=== PATIENT | female | born 1970 | race Caucasian/White ===

== ENCOUNTER 2018-11-05 14:53 | Inpatient (IN) ==
[2018-11-05] MEDS ORDERED: HEPARIN IV ONE (15:29)
[2018-11-05] MEDS ORDERED: ZOFRAN IV ONE (15:30)
[2018-11-05] MEDS ORDERED: MORPHINE IV ONE (15:30)
[2018-11-05 15:55] LABS: BASO# 0.06 X1000 (0.0-0.2); BASO% 0.4 % (0.0-0.8); EOS# 0.12 X1000 (0.0-0.7); EOS% 0.8 % (0.0-10.0); HEMATOCRIT 46.4 % (37.0-47.0); HEMOGLOBIN 15.9 g/dL (12.0-16.0); IMM GRAN# 0.16 X1000 (0.0-0.04); IMM GRAN% 1.1 % (0.0-0.5); LYMPH# 2.58 X1000 (1.2-3.4); LYMPH% 17.5 % (20.5-51.1); MCH 28.9 PG (27-31); MCHC 34.3 g/dL (33-37); MCV 84.4 FL (81-99); MONO% 6.1 % (1.7-9.3); MPV 11.4 FL (7.4-10.4); NEUT# 10.95 X1000 (1.4-6.5); NEUT% 74.1 % (42.2-75.2); PLT 247 X1000 (130-400); RDW 13.4 % (11.5-14.5); WBC 14.77 X1000 (4.8-10.8)
[2018-11-05 16:12] LABS: INR 0.91; PROTIME 13.1 Seconds (11.0-16.0); PTT 25.3 Seconds (22.3-41.8)
[2018-11-05] MEDS ORDERED: HEPARIN 25,000 UNITS/D5W 25,000 UNIT/250 ML IV.SOLN IV SCH (16:15)
[2018-11-05 16:16] LABS: ALB/GLOB RATIO 1.4; CALCIUM 8.7 mg/dL (8.8-10.2); CREATININE 1.5 mg/dL (0.5-0.9); POTASSIUM 4.4 mmol/L (3.5-5.1); TOTAL BILIRUBIN 0.34 mg/dL (0.20-1.00); TOTAL PROTEIN 6.8 g/dL (6.3-8.3)
--- NOTE | 2018-11-05 16:58 | Diag Imaging Result Doc PS360 ---
EXAM: CT ANGIOGRAM AORTA W/RUNOFF 11/05/2018 HISTORY: LLE decreased pulse TECHNIQUE: This exam was performed using automated exposure control, adjustment of mA or kV according to patient size, and/or use of iterative reconstruction technique. COMMENT: 3-D MIPS were performed. There is emphysematous change in the lung bases. There are granulomata in the spleen. There are no gallstones. The liver, adrenal glands and pancreas are unremarkable. The kidneys are without evidence of hydronephrosis or mass. There is an apparent cyst laterally in the left kidney. There appears to be some narrowing of the renal arteries bilaterally. The celiac and superior mesenteric arteries are patent. The inferior mesenteric artery is patent. There is severe calcific and noncalcific atheromatous disease in the distal abdominal aorta. There is stenosis of both common iliac arteries proximally particularly the left with near occlusion. There is at least 50% diameter stenosis of both common iliac arteries distally. The external iliac arteries are patent bilaterally. There are calcified plaques in both common femoral arteries. The superficial femoral arteries are somewhat narrowed proximally particularly the left. The possibility of a superficial femoral occlusion in the mid thigh on the left cannot be excluded. The contrast density in the distal portions of both legs is somewhat suboptimal. Both popliteal arteries appear to be patent. There is apparent runoff bilaterally in the posterior tibial arteries at least to the distal calf if not to the ankle. The anterior tibial arteries appear to be patent as well. IMPRESSION: Severe stenosis of the common iliac arteries at their origin particularly on the left side. Proximal stenosis of the left superficial femoral artery. Electronically signed by Kike Morales 11/05/2018 4:55 PM
[2018-11-05] MEDS ORDERED: QUELICIN (DOSE) ONE (17:25)
[2018-11-05] MEDS ORDERED: DIPRIVAN 1% ONE (17:25)
[2018-11-05] MEDS ORDERED: FENTANYL ONE ×2 (17:25→20:16)
[2018-11-05] MEDS ORDERED: VERSED ONE (17:25)
[2018-11-05] MEDS ORDERED: XYLOCAINE-MPF 2% ONE (17:25)
[2018-11-05] MEDS ORDERED: SODIUM CHLORIDE 0.9% 10 ML ONE (17:26)
[2018-11-05] MEDS ORDERED: NORCURON ONE (17:26)
[2018-11-05] MEDS ORDERED: MARCAINE 0.25% PF/EPI 1:200,000 ONE (17:38)
[2018-11-05] MEDS ORDERED: KEFZOL ONE (17:38)
--- NOTE | 2018-11-05 17:38 | Diag Imaging Result Doc PS360 ---
EXAM: CHEST-1 VIEW 11/05/2018 HISTORY: Sepsis protocol TECHNIQUE: AP portable at 1729 COMMENT: There is no evidence of acute cardiac or pulmonary disease. There are no previous studies. IMPRESSION: No evidence of acute disease. Electronically signed by Kike Morales 11/05/2018 5:36 PM
[2018-11-05] MEDS ORDERED: NS 2,000 ML ONE (17:39)
[2018-11-05] MEDS ORDERED: HEPARIN ONE ×3 (17:39→19:50)
[2018-11-05] MEDS ORDERED: KEFZOL 1 GM/D5W 2 GM/100 ML IVPB ONE (17:42)
--- NOTE | 2018-11-05 17:43 | PROVIDER DOCUMENTATION ---
This chart was entered by Aurelia Dove Scribe, acting as scribe for Anjel Gupta MD. HPI-Musculoskeletal Pain/Inj - GENERAL Chief Complaint: Extremity Pain Stated Complaint: CRAMPING Time Seen by Provider: 11/05/18 15:12 Source: patient, family - HX OF PRESENT ILLNESS-MUSKULOSKELTAL Nature of Presenting Problem: 48 yowf presents to the ed with cc left foot pain. pt sts felt well yesterday gave plasma and after giving plasma pt had a syncopal episode with n/v. pt woke this am with severe pain in left foot with digits and foot blue. pt on exam is tearful and sts pain 10/10 Quality of Pain: reports: throbbing Severity in ED: severe Onset/Duration: this morning Timing: still present, constant Modifying Factors: improves with: nothing. worse with: movement, palpation Any recent injury?: No Locality of Occurance: Home Similar Symptoms Previously?: No Recently seen or treated by another doctor?: No Review of Systems - Adult - REVIEW OF SYSTEMS - ADULT Constitutional: denies: chills, fever Eyes: reports: no symptoms reported Ears, Nose, Mouth & Throat: reports: no symptoms reported Cardiovascular: denies: chest pain, palpitations, syncope Respiratory: denies: cough, shortness of breath, wheezing Gastrointestinal: reports: no symptoms reported Genitourinary: reports: no symptoms reported Musculoskeletal: reports: see HPI, frequent leg cramps, other (left foot pain). denies: back pain, muscle aches, neck pain Integumentary: reports: no symptoms reported Neurological: denies: dizziness/vertigo, headache/migraines Psychiatric: reports: no symptoms reported Endocrine: reports: no symptoms reported Hematologic/Lymphatic: reports: no symptoms reported Allergic/Immunologic: reports: no symptoms reported All Other Systems: Reviewed and Negative Past History - Adult - PAST MEDICAL HISTORY-ADULT Review of Records: reports: Nursing Assessment Review, Medications Reviewed Major Childhood Illnesses: reports: denies history Cardiovascular: reports: denies history Respiratory: reports: denies history Gastrointestinal: reports: GERD Obstetrical/Gynecological: reports: ectopic Genitourinary: reports: denies history Musculoskeletal: reports: chronic pain, neck/back injury Hand Dominance: Right Handed Neurological: reports: denies history Psychiatric: reports: denies history Endocrine/Immune: reports: denies history Other Conditions: reports: denies history - PRIOR SURGERIES/PROCEDURES Surgical/Procedure History: reports: BTL - IMMUNIZATION STATUS Childhood Immunizations: See Nurse Assessment Flu Vaccine: See Nurse Assessment - FAMILY HISTORY Family History: reviewed, not pertinent - SOCIAL HISTORY Smoking: cigarettes, less than 1 pack/day Provider spent 3-5 mins advising pt. on dangers of tobacco.: Discussed manners to quit use, and f/u contacts for add'l counseling. Substance Use: marijuana Living Situation: family Physical Exam-Injury Related - Physical Exam-Injury Related Initial Vital Signs Reviewed: Yes General Appearance: alert, moderate distress, obese, other (tearful) Eyes: PERRL/EOMI, pink conjunctivae Head, Ears, Nose, Mouth & Throat: moist mucous membranes, normal ENT inspection Neck: non-tender, full range of motion, supple, normal inspection Respiratory: chest non-tender, lungs clear, normal breath sounds, no pleuratic chest pain, no respiratory distress, no accessory muscle use Cardiovascular: normal peripheral pulses, tachycardia (131) Chest/Breast: deferred Abdominal Exam: normal bowel sounds, non tender, soft Female Genitalia/Pelvic Exam: deferred Rectal Exam: deferred Hemoccult Exam: deferred Lymphatic: no adenopathy Back Exam: normal inspection, no CVA tenderness, no vertebral tenderness Extremity: pelvis stable, pulse deficit (left foot), slow capillary refill (left foot), tenderness (left foot), other (digits of left foot and partial area of foot is blue in color). negative: normal inspection Integumentary: warm/dry, cyanosis (left foot), tenderness (left foot) Neurologic: grossly normal, no motor/sensory deficits Psych/Mental Status: normal mood/affect, normal thought content, normal thought process, oriented x 3, tearful - Glascow Coma Score Best Eye Response (Joe): (4) open spontaneously Best Verbal Response (Joe): (5) oriented Best Motor Response (Joe): (6) obeys commands Joe Total: 15 Progress - PLAN OF CARE/RESULTS Progress/Plan/Lab Results: Vital Signs - 8 hr 11/05/18 14:56 Temperature 97.4 F L Pulse Rate 131 H Respiratory Rate 22 Blood Pressure 182/107 O2 Sat by Pulse Oximetry 99 Laboratory Results - last 24 hr 11/05/18 11/05/18 11/05/18 15:41 15:41 15:41 WBC 14.77 H RBC 5.50 H Hgb 15.9 Hct 46.4 MCV 84.4 MCH 28.9 MCHC 34.3 RDW Std Deviation 13.4 Plt Count 247 MPV 11.4 H Immature Gran % (Auto) 1.1 H Neut % (Auto) 74.1 Lymph % (Auto) 17.5 L [place] % (Auto) 6.1 Eos % (Auto) 0.8 Baso % (Auto) 0.4 Immature Gran # (Auto) 0.16 H Neut # (Auto) 10.95 H Lymph # (Auto) 2.58 [place] # (Auto) 0.90 H Eos # (Auto) 0.12 Baso # (Auto) 0.06 PT 13.1 INR 0.91 PTT (Actin FS) 25.3 Sodium 139 Potassium 4.4 Chloride 100 Carbon Dioxide 24 L Anion Gap 15 BUN 22 Creatinine 1.5 H Estimated GFR/1.73 m2 37 BUN/Creatinine Ratio 15 Glucose 142 H Calculated Osmolality 283 Calcium 8.7 L Magnesium Total Bilirubin 0.34 AST 18 ALT 11 Alkaline Phosphatase 81 Creatine Kinase Troponin T Total Protein 6.8 Albumin 4.0 Globulin 2.8 Albumin/Globulin Ratio 1.4 11/05/18 11/05/18 11/05/18 15:41 15:41 15:41 WBC RBC Hgb Hct MCV MCH MCHC RDW Std Deviation Plt Count MPV Immature Gran % (Auto) Neut % (Auto) Lymph % (Auto) [place] % (Auto) Eos % (Auto) Baso % (Auto) Immature Gran # (Auto) Neut # (Auto) Lymph # (Auto) [place] # (Auto) Eos # (Auto) Baso # (Auto) PT INR PTT (Actin FS) Sodium Potassium Chloride Carbon Dioxide Anion Gap BUN Creatinine Estimated GFR/1.73 m2 BUN/Creatinine Ratio Glucose Calculated Osmolality Calcium Magnesium 1.6 Total Bilirubin AST ALT Alkaline Phosphatase Creatine Kinase 80 Troponin T < 0.010 Total Protein Albumin Globulin Albumin/Globulin Ratio Orders Category Date Time Status Cardiac Monitoring DIRECTED Care 11/05/18 16:22 Active Notify MD of + Sepsis Screen NOW Care 11/05/18 16:22 Active Notify Physician As Ordered Care 11/05/18 16:22 Active CHEST-1 VIEW [RAD] Stat Exams 11/05/18 16:[address] ANGIOGRAM AORTA W/RUNOFF [CT] Stat Exams 11/05/18 15:28 Completed ANTI-THROMBIN III ACTIVITY [HH] Stat Lab 11/05/18 16:23 Ordered BLOOD CULTURE [BLDCUL] Stat Lab 11/05/18 15:21 Received CBC WITH ELECTRONIC DIFF [HEME] Stat Lab 11/05/18 15:41 Completed CK PROFILE [SP CHEM] Stat Lab 11/05/18 15:41 Completed COMPREHENSIVE METABOLIC PANEL [CHEM] Stat Lab 11/05/18 15:41 Completed FACTOR V [id number] LEIDEN [MACON] Stat Lab 11/05/18 16:23 Ordered HOMOCYSTEINE TOTAL PLASMA [HH] Stat Lab 11/05/18 16:23 Ordered LACTATE, PLASMA [CHEM] Lab 11/05/18 17:27 Received LACTATE, PLASMA [CHEM] Lab 11/05/18 19:30 Uncollected LACTATE, PLASMA [CHEM] Lab 11/05/18 22:30 Uncollected LUPUS INHIBITOR [HH] Stat Lab 11/05/18 16:23 Ordered MAGNESIUM [CHEM] Stat Lab 11/05/18 15:41 Completed PHOSPHOLIPID AB [MACON] Stat Lab 11/05/18 16:23 Ordered PROTEIN C ACTIVITY [HH] Stat Lab 11/05/18 16:23 Ordered PROTEIN S ACTIVITY [HH] Stat Lab 11/05/18 16:23 Ordered PROTIME WITH INR [COAG] Stat Lab 11/05/18 15:41 Completed PT [id number] GENE MUTATION [MACON] Stat Lab 11/05/18 16:23 Ordered PTT [COAG] Stat Lab 11/05/18 15:41 Completed TROPONIN T Stat Lab 11/05/18 15:41 Completed URINALYSIS W/POSS RFLX CULT [URINALYSIS] Stat Lab 11/05/18 16:22 Uncollected 0.9% Sodium Chloride Inj [Ns] 2,000 ml Med 11/05/18 17:39 Discontinued .ROUTE As directed Bupvcaine Pf0.25%/Epi 1:[id number] [Marcaine 0.25% Pf/Epi 1 Med 11/05/18 17:38 Discontinued :200,000] 30 ml .ROUTE .STK-MED ONE CefAZOLIN [Kefzol] Med 11/05/18 17:38 Discontinued 1 gm .ROUTE .STK-MED ONE Fentanyl Med 11/05/18 17:25 Discontinued 100 microgm .ROUTE .STK-MED ONE Heparin Med 11/05/18 17:39 Discontinued 10,000 unit .ROUTE .STK-MED ONE Heparin Med 11/05/18 17:39 Discontinued 5,000 unit .ROUTE .STK-MED ONE Heparin Med 11/05/18 15:29 Discontinued 5,100 unit IV NOW ONE Heparin 25,000 Units/D5w Med 11/05/18 16:15 Active 25,000 unit in 250 ml IV 12 unit/kg/hr Lidocaine 2% Pf [Xylocaine-Mpf 2%] Med 11/05/18 17:25 Discontinued 5 ml .ROUTE .STK-MED ONE Midazolam [Versed] Med 11/05/18 17:25 Discontinued 2 mg .ROUTE .STK-MED ONE Morphine Med 11/05/18 15:30 Discontinued 4 mg IV NOW ONE Ondansetron [Zofran] Med 11/05/18 15:30 Discontinued 4 mg IV NOW ONE Propofol [Diprivan 1%] Med 11/05/18 17:25 Discontinued 200 mg .ROUTE .STK-MED ONE Sodium Chloride 0.9% 10 ml Med 11/05/18 17:26 Discontinued .ROUTE As directed Succinylcholine (Dose) [Quelicin (Dose)] Med 11/05/18 17:25 Discontinued 20 mg .ROUTE .STK-MED ONE Vecuronium [Norcuron] Med 11/05/18 17:26 Discontinued 10 mg .ROUTE .STK-MED ONE Oxygen Device Stat Oth 11/05/18 16:22 Active Arterial Bilateral Legs Stat Ther 11/05/18 15:26 Completed Result Diagrams: 11/05/18 15:41 11/05/18 15:41 - CT/MRI 1 CT Study: Angiogram Impression: See EMR Report (EXAM: CT ANGIOGRAM AORTA W/RUNOFF 11/05/2018 HISTORY: LLE decreased pulse TECHNIQUE: This exam was performed using a utomated exposure control, adjustment of mA or kV according to patient size, and/or use of iterative reconstruction technique. COMMENT: 3-D MIPS were performed. There is emphysematous change in the lung bases. There are granulomata in the spleen. There are no gallstones. The liver, adrenal glands and pancreas are unremarkable. The kidneys are without evidence of hydronephrosis or mass. There is an apparent cyst laterally in the left kidney. There appears to be some narrowing of the renal arteries bilaterally. The celiac and superior mesenteric arteries are patent. The inferior mesenteric artery is patent. There is severe calcific and noncalcific atheromatous disease in the distal abdominal aorta. There is stenosis of both common iliac arteries proximally particularly the left with near occlusion. There is at least 50% diameter stenosis of both common iliac arteries distally. The external iliac arteries are patent bilaterally. There are calcified plaques in both common femoral arteries. The superficial femoral arteries are somewhat narrowed proximally particularly the left. The possibility of a superficial femoral occlusion in the mid thigh on the left cannot be excluded. The contrast density in the distal portions of both legs is somewhat suboptimal. Both popliteal arteries appear to be patent. There is apparent runoff bilaterally in the posterior tibial arteries at least to the distal calf if not to the ankle. The anterior tibial arteries appear to be patent as well. IMPRESSION: Severe stenosis of the common iliac arteries at their origin particularly on the left side. Proximal stenosis of the left superficial femoral artery. Electronically signed by Kike Morales 11/05/2018 4:55 PM 11/05/18 1655 Interpreting Physician: Kike Morales MD Dictated Date/Time: 11/05/18 1642 cc: Anjel Gupta MD; None,PCP) - CONSULTS/PCP/HOSPITALIST Notification #1 *Consult/PCP/Hospitalist*: venous sx dr he Time Discussed: 15:48 (dr he will call US ) Reason/Comments: phone consult Departure - Departure Date of Disposition Decision: 11/05/18 Time of Disposition Decision: 17:00 DIAGNOSIS: Vascular occlusion Disposition: ADMITTED INPATIENT 09 Certified Medical Emergency: Emergent Condition: Serious Referrals and Follow-Ups: None,PCP [Primary Care Provider] - Discharge Education: Steps to Quit Smoking, [id number] - Critical Care Note This patient required my direct & personal management of CC.: Yes Total Time (mins): 35 Critical Care Statement: This patient required my direct personal management to treat or rule out processes, the absence of which, could potentiallly result in sudden, clinically significant life or limb threatening deterioration. Attestation - Physician/ NICOLAS Attestation Patient care was provided by Advanced Practice Provider:: No The physician spent face to face time with patient:: Yes Advanced Practice Provider documentation review:: Supervising physician onsite and consulted in the evaluation and care of this patient. The physician did have a face to face encounter with the patient. This chart was documented by the indicated scribe, (Aurelia Dove Scribe) and accurately reflects the services I performed and decisions made by me, Anjel Gupta MD, as attested by the provider's signature.
[2018-11-05] MEDS ORDERED: PAPAVERINE ONE ×3 (19:10→19:55)
[2018-11-05] MEDS ORDERED: STERILE WATER INJ. INJ ONE (19:30)
[2018-11-05] MEDS ORDERED: CATHFLO IV ONE (19:30)
[2018-11-05] MEDS ORDERED: ROBINUL ONE (19:31)
[2018-11-05] MEDS ORDERED: NS 1,000 ML ONE (19:50)
[2018-11-05] MEDS ORDERED: HEPARIN (DOSE) ONE (20:27)
[2018-11-05 20:58] LABS: URINE SOURCE CATH
[2018-11-05 21:02] LABS: BILIRUBIN URINE NEGATIVE (NEGATIVE); BLOOD URINE NEGATIVE (NEGATIVE); COLOR YELLOW; GLUCOSE URINE NEGATIVE (NEGATIVE); KETONE URINE NEGATIVE (NEGATIVE); LEUKOCYTES URINE NEGATIVE (NEGATIVE); NITRITE URINE NEGATIVE (NEGATIVE); PROTEIN URINE 30 mg/dL (NEGATIVE); TURBIDITY URINE CLEAR (CLEAR); UROBILINOGEN URINE NORMAL (NORMAL)
[2018-11-05 21:03] LABS: UR EPITHELIAL CELLS <10 /HPF (<10); URINE BACTERIA NEGATIVE /HPF; URINE RBC <10 /HPF (<10); URINE WBC <10 /HPF (<10)
[2018-11-05] MEDS: DILAUDID ONE ×5 (21:10→21:27)
[2018-11-05] MEDS ORDERED: LABETALOL IV ONE (21:20)
[2018-11-05] MEDS: PHENERGAN ONE ×2 (21:42→21:50)
[2018-11-05] MEDS ORDERED: APRESOLINE ONE (21:57)
[2018-11-05 21:58] LABS: SP GRAVITY URINE <= 1.005
[2018-11-05] MEDS ORDERED: LR 1,000 ML ONE (22:14)
[2018-11-05] MEDS ORDERED: LABETALOL IV PRN (22:41)
[2018-11-05] MEDS ORDERED: APRESOLINE IV PRN (22:41)
[2018-11-05] MEDS ORDERED: MORPHINE IV PRN ×2 (22:42→23:07)
[2018-11-06] MEDS: ZOFRAN IV PRN (00:13)
[2018-11-06] MEDS: DILAUDID IV PRN ×5 (00:14→23:16)
--- NOTE | 2018-11-06 04:00 | HISTORY AND PHYSICAL ---
ADDENDUM: Patient seen and examined by myself on the . Full note dictated and discussed with nurse practitioner. Patient presented to the hospital with decreased circulation of her left foot. She has been taken to surgery by Dr. Bermudez. We will continue to evaluate and treat medically. Currently, she is sedated. The entire history has to be obtained per the old records. She is currently in no respiratory distress. Please see full note. cc: Kevon Jarrett MD
--- NOTE | 2018-11-06 04:05 | HISTORY AND PHYSICAL ---
PRIMARY CARE PHYSICIAN: None. CHIEF COMPLAINT: Left foot pain after giving plasma yesterday and a syncopal episode with nausea and vomiting yesterday. HISTORY OF PRESENT ILLNESS: Ms. Malagon is a 48-year-old female who is lying in the hospital bed status post surgery. The patient is sedated and sleeping. According to the ER records, the patient states that she had plasma yesterday and had a syncopal episode with nausea and vomiting. The patient woke up this a.m. with severe pain to her left foot with digits on her foot that were blue. The patient came to the ER, was seen by the ER physician. CTA was performed and showed severe stenosis of the common iliac arteries at their origin, particularly on the left side, proximal stenosis of the left superficial femoral artery. The patient was seen by Surgery. Dr. Silverman and Dr. Bermudez performed surgery on her left limb today to reopen the vascular occlusion. The patient is lying in bed, unable to give history because she is sedated. Does not seem in any pain at present time. According to the ER report, patient denies chest pain, palpitations, or syncope at present time. Denies a cough or shortness of breath. Denies muscle aches or pain except for left foot pain. Denies any vertigo, headache or migraines. Denies any fever, chills. Left lower extremity is noted to have erythema and there is a blue discoloration to the foot/toes area. Patient's pulses to the left foot are positive with doppler. The left foot is cool to touch. There is a dressing noted to the left groin that is a incision from surgery. Patient is noted to have rhonchi to the right upper lobe upon expiration. No respiratory distress is noted. PAST MEDICAL HISTORY: Chronic back pain and neck pain from an injury and GERD. PAST SURGICAL HISTORY: Bilateral tubal ligation. FAMILY HISTORY: Reviewed in the ER, is not pertinent. SOCIAL HISTORY: The patient lives with her family. She smokes 1 pack per day of cigarettes. The patient does admit to smoking marijuana. Denies any alcohol or any other illicit drug use. ALLERGIES: No known drug allergies. HOME MEDICATIONS: Elavil, aspirin, [place] 5, oxycodone 30 mg extended release, TobraDex ophthalmic solution. LABS/DIAGNOSTICS: White blood cell count of 14.77, hemoglobin 15.9, hematocrit 46.4, platelet count of 247,000. PT is 13.1, INR is 0.91, PTT is 25.3. Sodium 139, potassium 4.4, chloride 100, carbon dioxide 24, BUN 22, creatinine 1.5, glucose 142, calcium 8.7, magnesium 1.6. Urinalysis is negative for nitrates and leukocyte, positive for protein. Chest x-ray shows no acute disease. CT angiogram shows severe stenosis of the common iliac arteries at their origin, particularly on the left side, proximal stenosis of the left superficial femoral artery. REVIEW OF SYSTEMS: A 14 point review of systems was conducted with the patient. All were negative except for pertinent positives mentioned above in HPI. PHYSICAL EXAMINATION: VITAL SIGNS: Heart rate of 106, respiratory rate 17, blood pressure 138/81, and O2 saturation 100% on 2 L nasal cannula. GENERAL: Ms. Malagon is a 48-year-old female who is resting in the bed, sedated status post surgery. She is in no acute distress. She is unable to answer questions appropriately because she is sedated. HEENT: Head is atraumatic and normocephalic. Pupils are equal, round, reactive to light and are 3 mm, brisk. Oral mucous is moist. NECK: Supple. Trachea is midline. CARDIOVASCULAR: Patient has S1 and S2 noted. No JVD. No murmurs, gallops, or rubs appreciated with a regular rate and rhythm. PULMONARY: Patient has symmetrical chest expansion bilaterally. Lungs are mostly clear except for the right upper lobe, noted rhonchi on expiration. ABDOMEN: Soft, nondistended, with no tenderness noted. Bowel sounds are present in all 4 quadrants and were normoactive. EXTREMITIES: Right leg is pink, warm, and dry. Left leg noted erythema with some blue discoloration to the toes and top of the foot. Pulses were noted with Doppler. There is a notable incision site with a dressing over it to the left groin from surgery. INTEGUMENTARY: Patient's skin is pink, warm and dry except for the left lower leg which is a little cool to touch and the right groin which has an incision site. NEUROLOGICAL: The patient is resting quietly in bed, sedated. She is able to move all extremities and does not appear to have any deficits noted at this time. ASSESSMENT/PLAN: 1. Vascular occlusion. The patient was seen by Surgery for vascular occlusion. The occlusion was reopened. The patient was started on heparin drip per patients's Surgeon per protocol. 2. History of chronic pain to the neck and back. Orders for Dilaudid and morphine p.r.n. 3. Hypertension. P.r.n. hydralazine and labetalol ordered. This is likely due to patient's pain. 4. Marijuana abuse. Will review over cessation. 5. Tobacco abuse. Will review over smoking cessation. Dictated by IGNACIO Castañeda for Kevon Jarrett MD cc: MD Mitchell Landeros MD MTDD
[2018-11-06] MEDS: NS 1,000 ML IV SCH ×2 (05:23→14:36)
[2018-11-06 06:08] LABS: HEMATOCRIT 41.5 % (37.0-47.0); HEMOGLOBIN 13.9 g/dL (12.0-16.0); LYMPH% 13.8 % (20.5-51.1); MCH 28.8 PG (27-31); MCHC 33.5 g/dL (33-37); MCV 85.9 FL (81-99); MONO% 6.8 % (1.7-9.3); MPV 11.4 FL (7.4-10.4); NEUT% 78.6 % (42.2-75.2); PLT 224 X1000 (130-400); RBC 4.83 XMIL (4.2-5.4); RDW 13.5 % (11.5-14.5); WBC 15.43 X1000 (4.8-10.8)
[2018-11-06 06:09] LABS: BASO# 0.03 X1000 (0.0-0.2); BASO% 0.2 % (0.0-0.8); EOS# 0.03 X1000 (0.0-0.7); EOS% 0.2 % (0.0-10.0); IMM GRAN# 0.06 X1000 (0.0-0.04); IMM GRAN% 0.4 % (0.0-0.5); LYMPH# 2.13 X1000 (1.2-3.4); MONO# 1.05 X1000 (0.11-0.59); NEUT# 12.13 X1000 (1.4-6.5)
[2018-11-06 06:32] LABS: AGAP 12; BUN 16 mg/dL (8-22); CALCIUM 8.7 mg/dL (8.8-10.2); CHLORIDE 99 mmol/L (98-107); CHOLESTEROL 162 mg/dL (0-200); COSMO 273; ESTIMATED GFR 59; GLUCOSE 136 mg/dL (70-104); HDL 48 mg/dL (45-65); LDL 88 mg/dL; POTASSIUM 4.5 mmol/L (3.5-5.1); SODIUM 135 mmol/L (136-145); TCO2 24 mmol/L (25-35); TRIGLYCERIDES 131 mg/dL (35-135); VLDL 26 mg/dL
--- NOTE | 2018-11-06 06:57 | OPERATIVE NOTE ---
PROCEDURE DATE: 11/05/2018 PREOPERATIVE DIAGNOSIS: Acute lower extremity limb ischemia. POSTOPERATIVE DIAGNOSIS: Acute lower extremity limb ischemia. PROCEDURES PERFORMED: 1. Open thrombectomy of left lower extremity posterior tibial artery. 2. Open thrombectomy of left anterior tibial artery. 3. Arteriogram of left lower extremity in it's entirety. SURGEON: Mitchell Silverman MD. POLICE CHIEF DEPUTY: Dr. Bermudez. Dr. Bermudez assisted with the entirety of the case. His presence was crucial at the completion of the case. ANESTHESIA: General endotracheal INTRAOPERATIVE FINDINGS: Anterior tibial and posterior tibial were open to the ankle at the completion of the case. COMPLICATIONS: None at time of this dictation. EBL: 25 mL. SPECIMENS REMOVED: None. TOTAL CONTRAST: 74 mL TOTAL TPA: 4 mg. TOTAL USE OF PAPAVERINE: 240 mg. BRIEF HISTORY: A 48-year-old female with cold leg, and felt that she would benefit from thrombectomy. The risks, benefits, and alternatives were discussed. All questions were answered. DESCRIPTION OF PROCEDURE: After informed consent was obtained, patient was brought to the operative theater, transferred to the operative table, and placed in the supine position. General endotracheal anesthesia was then performed without complication. A formal time-out was then performed confirming patient and procedure. All were in agreement. At that time, attention was given to the legs. The left leg and the right groin were prepped and draped in a sterile fashion. After the formal time-out, we initially tried to percutaneously accessed the femoral artery. We then made a cutdown of the left groin down to the femoral artery, isolated the proximal and distal control, and placed the needle through it, passed a wire seen under fluoro going down the superficial femoral artery. We then placed a 6-[place] catheter into it, and then proceeded to do an arteriogram. We saw an occlusion down at the trifurcation. We then placed a Glidewire 5- [place] catheter through the initial 6-[place] sheath. We turned our attention first to the anterior tibial. We were able to pass somewhat, but we were unable to get past the calf. We then injected 120 mg of papaverine and able to get the artery open enough to pass the catheter further. We injected 2 mg of tPA in the area, and then passed the AngioJet catheter and did a thrombectomy. This opened up the artery to level the ankle. In a similar way, we were able to pass a wire down the posterior tibial. In a similar way, we gave papaverine and tPA to open up the artery as best we could. We then passed the AngioJet catheter down this and were able to do a thrombectomy this way. We were able to increase perfusion to the level of the ankles for both vessels. We then shot a completion arteriogram and showed some perfusion. We could not get down the peroneal easily. We then removed the catheter, and placed a [id number] stitch in the artery. We closed the skin in layers and placed zahra on the skin. The patient tolerated procedure well, and was transferred to the floor. She will remain on a heparin drip, and will have neurovascular checks. cc: Mitchell Silverman MD
--- NOTE | 2018-11-06 07:32 | GENERAL SURGERY CONSULTATION ---
DATE: 11/05/2018 REQUESTING PHYSICIAN: Emergency Department consult concerning cold legs. BRIEF HISTORY: A 48-year-old female presenting with less than 12 hour history of left lower extremity pain and coldness. She never had any kind of signs of claudication before. She is a smoker and chronic drug abuser, but she came in with chronic pain. She had a CTA done that showed occlusion. I was asked to weigh an opinion. PAST MEDICAL HISTORY: Includes 1. Migraines. 2. Chronic pain. 3. Substance abuse. PAST SURGICAL HISTORY: Includes 1. C-sections. 2. Tubal ligation. FAMILY HISTORY: Positive for coronary artery disease. SOCIAL HISTORY: Positive for cocaine, meth and smoking. HOME MEDICATIONS: Reviewed.Allergies: Reviewed. REVIEW OF SYSTEMS: A full 10 point review of systems obtained, negative except as specified in HPI. PHYSICAL EXAMINATION: Vital Signs: The patient is currently afebrile. Mild tachycardia in the 130s. Blood pressure 182/107. General: No acute distress but appears uncomfortable. female looks stated age. HEENT: Normocephalic, atraumatic. Pupils equal, round, reactive to light. Mucous membranes moist. Oropharynx benign. Neck: Supple. Trachea midline. Cardiovascular: Regular rate and rhythm. Lungs: Grossly clear. Abdomen: Soft, nontender, nondistended. Extremities: Cold left lower extremity with no palpable pulses at the level of the dorsalis pedis and anterior tibial. This is a significant change from the right lower extremity. Neurologic: Intact. Skin: Some cyanosis noted to the left lower extremity. Vascular: As noted above. LABORATORY DATA: White blood cell count is 15, creatinine is 1.5. CT scan independently reviewed and radiology report reviewed. ASSESSMENT/PLAN: A 48-year-old with critical ischemia left lower extremity. 1. Critical ischemia left lower extremity. At this time, we will plan on open thrombectomy. Discussed the case with the patient. Discussed the risks, benefits, and alternatives. Risks include but not limited to bleeding, infection, risk of injury to arteries, vessels and nerves, risk of amputation discussed. All questions answered. We will plan on procedure. I did discuss and review the case with Dr. Bermudez, who will assist in the case. 2. Multiple medical comorbidities and substance abuse to be handled by the hospitalist service. cc: Mitchell Silverman MD
[2018-11-06] MEDS ORDERED: HEPARIN 25,000 UNITS/D5W 25,000 UNIT/250 ML IV.SOLN IV SCH ×2 (08:38→14:15)
--- NOTE | 2018-11-06 10:33 | PROGRESS NOTE ---
DATE: 11/06/2018 SUBJECTIVE: This morning Ms. Malagon continues to be hurting pretty badly in the left leg. Surgery has already seen her this morning. OBJECTIVE: Vital signs: Blood pressure is currently 183/91, pulse of 119, respirations 18, and temperature 98.7 degrees. General: Ms. Malagon is a 48-year-old female. She is in bed. She is in some painful distress. HEENT: Mucosa is pink and moist. Anicteric. Acyanotic. Neck: Supple. Chest: Good air entry bilateral. There were no crepitations. No rhonchi. Cardiovascular: Regular rate and rhythm. Abdomen: Soft, distended, but nontender. Bowel sounds present. Extremities: No pedal edema. Left lower extremity distally on the foot. The foot is extremely cold and is purplish. I could not feel any distal pulse. The patient is able to wiggle the toes, and sensation seems to be intact. The right lower extremity is unremarkable. MANAGER COSMETIC: Patient is awake, alert, and oriented. LABORATORY DATA: WBC is 15.42, hemoglobin 13.9, and platelet count of 224,000. Chemistry is also reviewed. Creatinine is 1.0. Rest of chemistry is unremarkable. ASSESSMENT AND PLAN: The patient underwent open thrombectomy of the left lower extremity posterior tibia. There was also an open thrombectomy of the left anterior tibial artery. There was an arteriogram of the left lower extremity in its entirety by Dr. Silverman and Dr. Bermudez. ASSESSMENT: 1. Acute left ischemic limb. The patient is status post an open thrombectomy of the left anterior tibial artery and the posterior tibial artery all the way to the ankle. The patient has been seen this morning by surgery. She continues to be on IV heparin for anticoagulation. 2. Hypertension, currently uncontrolled. We are going to up titrate her current medications. 3. Tobacco abuse. Patient has been counseled. 4. Marijuana, cannabis abuse. The patient has been counseled. 5. Severe atherosclerosis. We will start the patient on statin. cc: Román Haq MD [facility]
--- NOTE | 2018-11-06 10:41 | GENERAL SURGERY PROGRESS NOTE ---
DATE: 11/06/2018 SUBJECTIVE: Patient seems to be doing okay, although she still has some left leg pain. Nursing staff reports no major issues. OBJECTIVE: Vital Signs: Patient is currently afebrile. She has a mild tachycardia in the 1 teens. Blood pressure appears stable. General: No acute distress. Cardiovascular: Somewhat tachycardic. Lungs: Grossly clear. Abdomen: Soft, nontender, nondistended. Left groin incision with dressing intact. Extremities: Left foot mottled to the level of the ankle distally, somewhat cool compared to the right leg. Neuromuscular is intact. There is a signal although appears monophasic in the posterior tibial. I could not find an anterior tibial or dorsalis pedis. ASSESSMENT/PLAN: A 48-year-old female status post open thrombectomy of left lower extremity. 1. Open thrombectomy. At this time keep we will keep the patient on heparin drip. We will keep her on a clear liquid diet for right now, just monitor how her until her foot seems to tell us exactly what to watch here. She has got full hypercoagulable panel workup pending although I think some of this may be related to just recreational drug abuse and smoking. 2. We will need to monitor foot. My partners will follow over the weekend. There is a chance she may require an amputation but again will like to try to salvage the foot as best as possible. cc: Mitchell Silverman MD
[2018-11-06 11:35] LABS: URINE SOURCE CATH
[2018-11-06 11:44] LABS: BILIRUBIN URINE NEGATIVE (NEGATIVE); BLOOD URINE MODERATE (NEGATIVE); COLOR YELLOW; GLUCOSE URINE NEGATIVE (NEGATIVE); KETONE URINE NEGATIVE (NEGATIVE); LEUKOCYTES URINE NEGATIVE (NEGATIVE); NITRITE URINE NEGATIVE (NEGATIVE); PH URINE 6.5; PROTEIN URINE TRACE mg/dL (NEGATIVE); SP GRAVITY URINE 1.035; TURBIDITY URINE CLEAR (CLEAR); UROBILINOGEN URINE NORMAL (NORMAL)
[2018-11-06 11:46] LABS: UR EPITHELIAL CELLS <10 /HPF (<10); URINE BACTERIA NEGATIVE /HPF; URINE WBC <10 /HPF (<10)
[2018-11-06] MEDS: PERIDEX MT SCH ×2 (12:26→20:04)
[2018-11-06] MEDS: COZAAR PO SCH (12:27)
[2018-11-06] MEDS: CRESTOR PO SCH (12:28)
[2018-11-06] MEDS: TRANDATE PO SCH ×2 (12:28→20:04)
[2018-11-06] MEDS ORDERED: HEPARIN IV STA (14:15)
--- NOTE | 2018-11-06 19:29 | VASCULAR LAB ---
PROCEDURE NAME: Arterial Bilateral Legs - 11/05/2018 REQUESTING PHYSICIAN: Dr. Gupta, emergency department. FINAL DRESSING CUTTER: Bartolo. INDICATIONS: 1. Leg pain. 2. Purple toes on the left foot. Segmental pressures are as follows: Right brachial 121, left 118. Right proximal thigh 203, right distal thigh 154. Right popliteal 178. Right dorsalis pedis 209. Right posterior tibial 181. Left side: No signals noted in the dorsalis pedis or posterior tibial. Waveforms: Waveforms appear to be intact on the right side, although there is some dampening noted in the proximal thigh. There is essentially no waveform at the level of the ankle distally on the left side. This test was stopped short per Dr. Silverman's request for the patient to get a CT angiography to delineate the anatomy. INTERPRETATION: Likely occluded left side with some degree of bilateral proximal vascular disease. The patient would benefit from CT angiography. cc: Mitchell Silverman MD
--- NOTE | 2018-11-06 21:04 | GENERAL SURGERY PROGRESS NOTE ---
DATE: 11/06/2018 Assess patient's leg. Still cold to the level of the ankle distally. There is still a monophasic posterior tibial. I cannot find anything anterior tibial dorsalis pedis. We will continue heparin drip. She may ultimately require [id number] amputation. cc: Mitchell Silverman MD
[2018-11-07] MEDS: ZOFRAN IV PRN (00:44)
[2018-11-07] MEDS: DILAUDID IV PRN ×7 (01:56→22:10)
[2018-11-07 04:56] LABS: ALB/GLOB RATIO 1.1; ALBUMIN 2.8 g/dL (3.5-5.0); CALCIUM 7.9 mg/dL (8.8-10.2); CREATININE 1.1 mg/dL (0.5-0.9); POTASSIUM 4.5 mmol/L (3.5-5.1); TOTAL BILIRUBIN 0.28 mg/dL (0.20-1.00); TOTAL PROTEIN 5.4 g/dL (6.3-8.3)
[2018-11-07 05:15] LABS: BASO# 0.03 X1000 (0.0-0.2); BASO% 0.3 % (0.0-0.8); EOS% 0.9 % (0.0-10.0); HEMATOCRIT 34.2 % (37.0-47.0); IMM GRAN# 0.06 X1000 (0.0-0.04); IMM GRAN% 0.5 % (0.0-0.5); LYMPH# 2.71 X1000 (1.2-3.4); LYMPH% 24.7 % (20.5-51.1); MCH 28.4 PG (27-31); MCHC 32.2 g/dL (33-37); MCV 88.4 FL (81-99); MONO# 1.19 X1000 (0.11-0.59); MONO% 10.9 % (1.7-9.3); MPV 11.2 FL (7.4-10.4); NEUT# 6.86 X1000 (1.4-6.5); NEUT% 62.7 % (42.2-75.2); PLT 181 X1000 (130-400); RBC 3.87 XMIL (4.2-5.4); RDW 13.3 % (11.5-14.5); WBC 10.95 X1000 (4.8-10.8)
[2018-11-07] MEDS: NS 1,000 ML IV SCH ×2 (05:22→18:44)
[2018-11-07] MEDS ORDERED: HEPARIN 25,000 UNITS/D5W 25,000 UNIT/250 ML IV.SOLN IV SCH (07:45)
[2018-11-07] MEDS: COZAAR PO SCH (08:38)
[2018-11-07] MEDS: TRANDATE PO SCH ×2 (08:38→22:09)
[2018-11-07] MEDS: PERIDEX MT SCH ×2 (08:38→22:09)
[2018-11-07] MEDS: CRESTOR PO SCH (08:38)
[2018-11-07] MEDS: ASPIRIN PO SCH (08:39)
--- NOTE | 2018-11-07 19:19 | PROGRESS NOTE ---
DATE: 11/07/2018 SUBJECTIVE: This morning, Ms. Malagon continues to have a lot of pain in her foot. The mother, , and father were all at the bedside at the time of the encounter. Surgery has not seen her yet today. OBJECTIVE: Vital signs: Blood pressure is 123/65, pulse of 93, respiration is 18, temperature 98.4 degrees. The patient is saturating 98% on room air. General: Ms. Malagon is a 48-year-old female. She is in bed. She is in some pain. HEENT: Mucosa is pink and moist. Anicteric. Acyanotic. Neck: Supple. Chest: Good air entry bilateral. There are no crepitations. No rhonchi. Cardiovascular: Regular rate and rhythm. No murmurs. No rubs. No gallops. Gastrointestinal: Abdomen is soft, distended, but not tender. Bowel sounds present. Extremities: No pedal edema. Left foot continues to be remarkably cold. It is now purplish. It is extremely painful, even at rest. The patient is not able to move very well the toes, and this seems to all be worse than yesterday. The right lower extremity is unremarkable. I could hardly feel any pulse in the left tibial posterior and pedis. LABORATORY DATA: WBC is 10.95, hemoglobin is 11.0, platelet count of 181,000. Chemistry is also reviewed. Creatinine is 1.1. Rest of chemistry is unremarkable. ASSESSMENT: 1. Acute left ischemic limb. The patient is status post open thrombectomy of the left anterior tibial artery and posterior tibial artery all the way down to the ankle. However, this morning, the foot continues to be dusky, cold, and extremely painful at rest. I think Ms Malagon is most likely going to lose the limb. We will, however, wait for Surgery to evaluate her today. We are going to continue with the IV heparin and statin. 2. Hypertension, controlled. 3. Tobacco abuse. The patient has been counseled. 4. Marijuana abuse. 5. Severe atherosclerosis. The patient has been started on statin. In general, Ms. Malagon continues to be very symptomatic, even at rest, on the left foot today. The foot looks more dusky, colder, and extremely more painful with almost inability to move the digits. We are pending surgery evaluation today and then go from there. cc: Román Haq MD
[2018-11-08] MEDS: DILAUDID IV PRN ×7 (01:21→20:32)
--- NOTE | 2018-11-08 04:45 | GENERAL SURGERY PROGRESS NOTE ---
DATE: 11/07/2018 SUBJECTIVE: The patient reports continued pain in her left foot. She says the color is perhaps slightly improved than it was before surgery, but the pain is not improved. OBJECTIVE: Vital signs: She is afebrile. Vital signs are stable. General: She is awake, alert, and oriented x3. No acute distress. Extremities: The left foot is cool and mottled. This mottling extends up to the ankle and lower leg. Doppler results do demonstrate a faint monophasic posterior tibial pulse. Her foot is very tender. ASSESSMENT/PLAN: A 40-year-old female with left foot ischemia secondary to thrombosis. She is status post thrombectomy. The viability of the foot is in question. She remains on a heparin drip. She does have a faint pulse. The demarcation is ongoing. We will continue to observe and see what demarcates and whether this is a salvageable limb. cc: Anjel Black MD
[2018-11-08 06:33] LABS: BASO# 0.04 X1000 (0.0-0.2); BASO% 0.4 % (0.0-0.8); EOS# 0.15 X1000 (0.0-0.7); EOS% 1.5 % (0.0-10.0); HEMOGLOBIN 10.3 g/dL (12.0-16.0); IMM GRAN# 0.05 X1000 (0.0-0.04); IMM GRAN% 0.5 % (0.0-0.5); LYMPH# 2.29 X1000 (1.2-3.4); LYMPH% 22.2 % (20.5-51.1); MCH 28.6 PG (27-31); MCHC 32.2 g/dL (33-37); MCV 88.9 FL (81-99); MONO# 1.01 X1000 (0.11-0.59); MONO% 9.8 % (1.7-9.3); MPV 11.8 FL (7.4-10.4); NEUT# 6.78 X1000 (1.4-6.5); NEUT% 65.6 % (42.2-75.2); PLT 182 X1000 (130-400); RDW 13.3 % (11.5-14.5); WBC 10.32 X1000 (4.8-10.8)
[2018-11-08 07:15] LABS: ALB/GLOB RATIO 1.2; ALBUMIN 3.1 g/dL (3.5-5.0); CALCIUM 8.4 mg/dL (8.8-10.2); POTASSIUM 4.4 mmol/L (3.5-5.1); TOTAL BILIRUBIN 0.27 mg/dL (0.20-1.00); TOTAL PROTEIN 5.7 g/dL (6.3-8.3)
[2018-11-08] MEDS: TRANDATE PO SCH ×2 (08:55→20:32)
[2018-11-08] MEDS: COZAAR PO SCH (08:55)
[2018-11-08] MEDS: CRESTOR PO SCH (08:55)
[2018-11-08] MEDS: ASPIRIN PO SCH (08:55)
[2018-11-08] MEDS: PERIDEX MT SCH ×2 (08:57→20:33)
[2018-11-08] MEDS ORDERED: HEPARIN 25,000 UNITS/D5W 25,000 UNIT/250 ML IV.SOLN IV SCH ×2 (09:38→09:41)
[2018-11-08] MEDS ORDERED: HEPARIN IV ONE (10:53)
--- NOTE | 2018-11-08 12:28 | PROGRESS NOTE ---
DATE: 11/08/2018 SUBJECTIVE: This morning Ms. Malagon continues to have a lot of pain in the left lower extremity. OBJECTIVE: Vital signs: Blood pressure is 133/69, pulse is 98, respirations 16, temperature 98.6 degrees. On general exam, Ms. Malagon is a 48-year-old female. She is in bed. She is in some pain. Mucosa is pink and moist. Anicteric. Acyanotic. Neck is supple. Chest is clear to auscultation. No crepitations. No rhonchi. Cardiovascular: Regular rate and rhythm. No murmurs, no rubs, no gallops. Abdomen: Soft, distended, but nontender. Bowel sounds present. Extremities: The left foot continues to be remarkably cold. It is purplish, dusky. It is extremely painful. The patient is not able to move the toes, and there is no sensation in the toes and the distal aspect of the foot. LABORATORY DATA: Has been reviewed. CBC is unremarkable. CMP is also unremarkable. MEDICATION: The patient's current medications have all been reviewed. She is still on the heparin drip. ASSESSMENT: 1. Acute left ischemic limb. The patient is status post open thrombectomy of the left anterior and posterior tibial arteries. The foot continues to be in some danger. I think she is going to eventually lose the foot. Surgery is on board, and they are waiting for demarcation to happen in and go from there. 2. Hypertension, controlled. 3. Tobacco and marijuana use and abuse. Patient has been counseled. 4. Severe atherosclerosis. The patient is on aspirin and statin. PLAN: In general, I think Ms. Malagon continues to be extremely symptomatic in the lower left extremity which continues to be cold and painful at rest with purplish and dusky discoloration in the digits. Surgery is on board, and we will continue following up with them. This morning Ms. Malagon is requesting the Last catheter to be removed, which I think is reasonable. cc: [facility]
--- NOTE | 2018-11-08 14:18 | GENERAL SURGERY PROGRESS NOTE ---
DATE: 11/08/2018 SUBJECTIVE: She has had no acute changes overnight. She feels about the same, but the pain medicine is helping. OBJECTIVE: She is afebrile. Vital signs are stable.General: She is awake, alert, and oriented x3. No acute distress. Extremities: The left foot, ankle, and lower leg are cool to touch and mottled. They are tender as well. There is a stable monophasic Dopplerable pulse of the left posterior tibial. ASSESSMENT AND PLAN: A 48-year-old female with acute on chronic left limb ischemia. She is status post thrombectomy. There is some flow to the posterior tibial, but the foot remains very ischemic. We will continue with her heparin drip and monitor for any signs of improving viability over the next few days. cc: Anjel Black MD
[2018-11-08] MEDS: HEPARIN 25,000 UNITS/D5W 25,000 UNIT/250 ML IV.SOLN IV SCH (20:36)
[2018-11-09] MEDS: DILAUDID IV PRN ×10 (00:04→22:25)
[2018-11-09] MEDS ORDERED: HEPARIN IV ONE ×2 (00:40→09:51)
[2018-11-09] MEDS: HEPARIN 25,000 UNITS/D5W 25,000 UNIT/250 ML IV.SOLN IV SCH ×2 (00:49→19:19)
[2018-11-09] MEDS: CRESTOR PO SCH (11:41)
[2018-11-09] MEDS: NS 1,000 ML IV SCH (11:41)
[2018-11-09] MEDS: TRANDATE PO SCH ×2 (11:41→20:13)
[2018-11-09] MEDS: PERIDEX MT SCH ×2 (11:41→20:14)
[2018-11-09] MEDS: ASPIRIN PO SCH (11:41)
[2018-11-09] MEDS: COZAAR PO SCH (11:42)
[2018-11-09] MEDS: NORCO-10 PO PRN ×3 (11:43→22:24)
--- NOTE | 2018-11-09 12:38 | GENERAL SURGERY PROGRESS NOTE ---
DATE: 11/09/2018 SUBJECTIVE: Still having a lot of pain in her foot. No fevers. No tachycardia overnight. OBJECTIVE: Blood pressure high at 180 8/72. Her foot has persistent ischemic changes with some demarcation. She does have a posterior tibial signal. Her groin has ecchymosis, but no hematoma. DIAGNOSTIC STUDIES: White count was normal yesterday. Her PTTs have been therapeutic. Potassium is 5.5. ASSESSMENT AND PLAN: This is a 48-year-old female with acute ischemia of her foot, possibly related to underlying peripheral vascular disease. She is a smoker. We will continue her anticoagulation and pain control. I suspect she is going to progress to amputation. Hopefully, we can salvage her ankle, although I doubt her forefoot is salvageable. We will continue to follow along. cc: Helen Gotti MD
[2018-11-09] MEDS ORDERED: COZAAR PO ONE (14:50)
--- NOTE | 2018-11-09 15:15 | PROGRESS NOTE ---
DATE: 11/09/2018 SUBJECTIVE: Patient has no major complaints. OBJECTIVE: Vital Signs: Blood pressure 193/77, heart rate 86, respiratory 16, temperature 98.5. She does seem to be in a decent amount of pain. Cardiovascular: Regular rate and rhythm. Pulmonary: Bilateral breath sounds. Clear to auscultation. Gastrointestinal: Was soft, nontender. Extremities: Her left foot has just kind of dusky purplish ecchymoses, yellowish tinge to the skin. It just looks like there may be some early ischemic changes transitioning to just shanna necrosis, although at this point there is no clear necrosis. She has some erythema that is extending up her leg. She is complaining of a significant amount of pain. LABORATORY DATA: No new data today. Her PTT is therapeutic. PROBLEM LIST: 1. Acute ischemic limb related to an acute thrombus. She had a thrombectomy in her left anterior and posterior tibial, but despite that she has reperfusion injury or initial ischemic injury and she may require amputation. Surgery is continuing to follow and plan to re-evaluate for surgical options. 2. Hypertension is not completely controlled, although I anticipate that is largely due to pain control. May bump up her losartan to 100 daily and follow. We will have to follow her kidney function because she did have some kidney issues there. Norvasc is another option and may be safer on the kidneys, but I am afraid of it contributing to peripheral edema that may not help in her current situation. DISPOSITION: Pending her clinical status, although I anticipate she will likely need amputation. She is currently on a heparin drip, so we will continue to follow. cc: London Ventura MD
[2018-11-09] MEDS ORDERED: HEPARIN 25,000 UNITS/D5W 25,000 UNIT/250 ML IV.SOLN IV SCH (18:30)
[2018-11-10] MEDS: DILAUDID IV PRN ×8 (00:32→22:21)
[2018-11-10] MEDS: NORCO-10 PO PRN ×5 (02:32→22:20)
[2018-11-10 06:06] LABS: BASO# 0.04 X1000 (0.0-0.2); BASO% 0.4 % (0.0-0.8); EOS# 0.34 X1000 (0.0-0.7); EOS% 3.5 % (0.0-10.0); HEMATOCRIT 28.3 % (37.0-47.0); HEMOGLOBIN 9.1 g/dL (12.0-16.0); IMM GRAN# 0.05 X1000 (0.0-0.04); IMM GRAN% 0.5 % (0.0-0.5); LYMPH# 2.13 X1000 (1.2-3.4); LYMPH% 21.8 % (20.5-51.1); MCH 28.4 PG (27-31); MCHC 32.2 g/dL (33-37); MCV 88.4 FL (81-99); MONO# 1.07 X1000 (0.11-0.59); MPV 11.2 FL (7.4-10.4); NEUT# 6.14 X1000 (1.4-6.5); NEUT% 62.8 % (42.2-75.2); PLT 209 X1000 (130-400); RDW 13.1 % (11.5-14.5); WBC 9.77 X1000 (4.8-10.8)
[2018-11-10 06:56] LABS: AGAP 11; BUN 10 mg/dL (8-22); CALCIUM 7.9 mg/dL (8.8-10.2); CHLORIDE 103 mmol/L (98-107); COSMO 276; CREATININE 0.9 mg/dL (0.5-0.9); ESTIMATED GFR > 60; GLUCOSE 123 mg/dL (70-104); POTASSIUM 3.9 mmol/L (3.5-5.1); SODIUM 138 mmol/L (136-145); TCO2 24 mmol/L (25-35)
--- NOTE | 2018-11-10 08:21 | GENERAL SURGERY PROGRESS NOTE ---
DATE: 11/10/2018 SUBJECTIVE: Patient doing about the same. She has been having some leg pain in the left leg. OBJECTIVE: Vital Signs: Patient is currently afebrile. Her vital signs are stable. General: No acute distress. Resting. Cardiovascular: Regular rate and rhythm. Lungs: Grossly clear. Abdomen: Soft, nontender, nondistended. Extremities: Left leg still demarcating at the level of the ankle distally. There is a posterior tibial signal. ASSESSMENT/PLAN: A 48-year-old female with cold left lower extremity. Cold left lower extremity: At this time, she is likely not going to resolve at the level at the level of her ankle. We will need to consider amputation. We will get a lower extremity arterial study to evaluate level of amputation, but it will likely be [id number]. We will potentially plan on this tomorrow. We will also get hematology/oncology on board. She did have a slightly decreased antithrombin 3, so we will get their opinion. Otherwise, continue supportive care. cc: Mitchell Silverman MD
[2018-11-10] MEDS: PERIDEX MT SCH ×2 (09:58→20:14)
[2018-11-10] MEDS: COZAAR PO SCH (09:59)
[2018-11-10] MEDS: TRANDATE PO SCH ×2 (09:59→20:14)
[2018-11-10] MEDS: CRESTOR PO SCH (09:59)
[2018-11-10] MEDS: ASPIRIN PO SCH (09:59)
[2018-11-10] MEDS: TYLENOL PO PRN ×2 (12:06→18:08)
[2018-11-10] MEDS: HEPARIN 25,000 UNITS/D5W 25,000 UNIT/250 ML IV.SOLN IV SCH (13:14)
--- NOTE | 2018-11-10 14:35 | PROGRESS NOTE ---
DATE: 11/10/2018 SUBJECTIVE: This morning Ms. Malagon refers to be hurting, the mother was at the bedside at the time of the encounter. OBJECTIVE: Vitals: Blood pressure 127/65, pulse of 107, respiration is 20, temperature is 102.3 degrees came down to 100 after Tylenol given. Ms. Malagon 48-year-old female she is in bed, she is in obvious painful distress. Mucosa is pink and moist. Anicteric, acyanotic. Neck: Supple. Chest: Good air entry bilaterally. No crepitations. No rhonchi. Cardiovascular: Regular rate and rhythm. No murmurs, no rubs, no gallops. Abdomen: Soft, distended but nontender, bowel sounds present. Extremities: Left lower extremity continues to be remarkably cold and purplish, extremely painful. Patient is not able to move the toes and there is some blister formation on it. BUSINESS PLANNING MANAGER: Patient is awake and alert. LABORATORY DATA: CBC is unremarkable. Chemistry is also unremarkable. So far blood cultures have been negative. Patient continues to be on heparin drip. ASSESSMENT: 1. Acute left ischemic limb. Patient is status post open thrombectomy of the left anterior and posterior tibial arteries. The foot continues to be remarkably symptomatic. There is a plan for BKA tomorrow. 2. Hypertension controlled. 3. Tobacco, marijuana abuse, patient has been counseled. 4. Severe atherosclerosis. Patient is currently on statin and aspirin. cc: Román Haq MD
[2018-11-11] MEDS: DILAUDID IV PRN ×8 (00:49→22:23)
[2018-11-11] MEDS: NORCO-10 PO PRN ×2 (02:52→18:56)
--- NOTE | 2018-11-11 07:51 | GENERAL SURGERY PROGRESS NOTE ---
DATE: 11/11/2018 SUBJECTIVE: Patient is doing about the same. She has had some cramping in her left leg. OBJECTIVE: Vital Signs: The patient is currently afebrile. Her vital signs are stable. General Examination: No acute distress. Cardiovascular: Regular rate and rhythm. Lungs: Grossly clear. Abdomen: Soft, nontender, nondistended. Extremities: Essentially unchanged but no perfusion noted to the left foot. ASSESSMENT/PLAN: A 48-year-old female with an ischemic left foot, status post thrombectomy. Ischemic left foot. At this time, after several days of a heparin drip and after open thrombectomy with tPA, it is not improved, we will plan on [id number] amputation. I think based off the BARRIE, we could potentially get this to heal, although I discussed the possibility that she might need above the knee. The risks, benefits, and alternatives were discussed. Risks include but are not limited to bleeding, infection, risk of anesthesia, risk of need to convert to above the knee amputation, risk of stump infections, discussed with the patient. All questions answered. We will schedule for surgery today. We will hold her heparin drip for right now. cc: Mitchell Silverman MD
--- NOTE | 2018-11-11 08:29 | HEMO/ONC CONSULTATION ---
DATE: 11/10/2018 ADMITTING PHYSICIAN: Dr. Jarrett. REQUESTING PHYSICIAN: Dr. Jarrett. We appreciate this consult. CHIEF COMPLAINT: Antithrombin 3 deficiency and arterial thrombosis. HISTORY OF PRESENT ILLNESS: Ms. Malagon is a pleasant, 48-year-old, female with a history of chronic back pain from an injury, and gastroesophageal reflux disease. The patient presented to [facility] Emergency Department with reports of severe left lower extremity pain, cyanosis, and coldness. The patient underwent CTA, which revealed severe stenosis of the common iliac arteries at the origin, and proximal stenosis of the left superficial femoral artery. Surgery was consulted for vascular occlusion. The patient was found to have an antithrombin 3 deficiency as well. Full workup has been ordered. We are consulted secondary to questionable antithrombin 3 deficiency. PAST MEDICAL HISTORY: 1. Chronic back pain from an injury. 2. Gastroesophageal reflux disease. PAST SURGICAL HISTORY: Bilateral tubal ligation. FAMILY HISTORY: Negative for any hematologic problems. The patient's mother has breast cancer. SOCIAL HISTORY: The patient does smoke 1 pack of cigarettes daily. Additionally, she smokes marijuana. She does not use alcohol or other illicit drugs. MEDICATIONS ON ADMISSION: 1. Elavil. 2. Aspirin. 3. Burley 5. 4. Oxycodone. 5. TobraDex ophthalmic solution. ALLERGIES: The patient has no known drug allergies. REVIEW OF SYSTEMS: A 14-point review of systems was obtained and is negative, except for as mentioned in the HPI. PHYSICAL EXAMINATION: General: Ms. Malagon is lying supine in bed in no immediate distress. HEENT: Normocephalic, atraumatic. Mucous membranes are pale and moist. Sclerae anicteric. Extraocular movements intact. Neck: Supple. Lungs: Clear to auscultation bilaterally. Chest expansion is equal bilaterally. CV: S1, S2 is heard. No murmurs, rubs, or gallops. Abdomen: Nondistended. Extremities: Without clubbing. The patient does have left lower extremity cyanosis, 1+ edema, and is cold to touch. Dermatologic: No rashes, bruises, or lesions. Neurologic: The patient is awake, alert, and oriented x3. She has no focal deficits. LABORATORY DATA: Hemoglobin 9.1, hematocrit 28.3, white blood cell count is 9.77, platelets 209,000. Lupus inhibitor is negative. Sodium 138, potassium 3.9, chloride 103, CO2 is 24, BUN 10, creatinine 0.9, glucose is 123, calcium 7.9. IMAGING STUDIES: Aorta with runoff CTA reveals severe stenosis of the common iliac arteries at their origin, especially on the left, with proximal stenosis of the left superficial femoral artery. Chest x-ray reveals no evidence of acute disease. ASSESSMENT AND PLAN: 1. Questionable antithrombin 3 deficiency with acute arterial clot. Of note, antithrombin 3 can be decreased in the presence of active clot. We will proceed with full hematologic workup. The patient is currently on a heparin drip and aspirin 81 mg daily. We agree with this anticoagulation. Further recommendations pending outcomes. 2. Acute ischemic limb due to acute thrombus, status post attempted thrombectomy. The patient is scheduled for amputation tomorrow. Surgery is following. 3. Uncontrolled hypertension. Blood pressure is currently 127/65. Antihypertensive per hospitalist. We will follow along with you and make further recommendations pending outcomes. The above reflects the history, exam, assessment, and plan of Dr. Kennedy. Dictated by IGNACIO Marrero for Oleg Kennedy MD cc: IGNACIO Marrero MD
[2018-11-11] MEDS: CRESTOR PO SCH (08:53)
[2018-11-11] MEDS: TRANDATE PO SCH ×2 (08:53→20:47)
[2018-11-11] MEDS: ASPIRIN PO SCH (08:53)
[2018-11-11] MEDS: PERIDEX MT SCH ×2 (08:53→20:47)
[2018-11-11] MEDS: COZAAR PO SCH (08:53)
[2018-11-11] MEDS ORDERED: ATIVAN PO PRN (10:46)
[2018-11-11] MEDS ORDERED: ROBINUL ONE (11:48)
[2018-11-11] MEDS ORDERED: DIPRIVAN 1% ONE (11:48)
[2018-11-11] MEDS ORDERED: FENTANYL ONE (11:48)
[2018-11-11] MEDS ORDERED: XYLOCAINE-MPF 2% ONE (11:48)
[2018-11-11] MEDS ORDERED: KEFZOL 1 GM/D5W 1 GM/50 ML IVPB ONE (12:09)
[2018-11-11] MEDS ORDERED: ZOFRAN ONE (12:30)
[2018-11-11] MEDS ORDERED: NEO-SYNEPHRINE ONE (12:38)
[2018-11-11] MEDS ORDERED: SODIUM CHLORIDE 0.9% 10 ML ONE (12:38)
[2018-11-11] MEDS ORDERED: DECADRON ONE (12:45)
[2018-11-11] MEDS ORDERED: NS 500 ML ONE (14:12)
--- NOTE | 2018-11-11 15:02 | PROGRESS NOTE ---
DATE: 11/11/2018 SUBJECTIVE: This morning Ms. Malagon refers to be still hurting, but not as much as did before. She is pending a BKA today. OBJECTIVE: Vital signs: Blood pressure is 113/77, pulse of 103, respiration is 12, temperature is 98.6 degrees. Patient was saturating 99%. General exam: Ms. Malagon is a 48-year-old female. She is in bed, no distress. HEENT: Mucosa is pink and moist. Anicteric. Acyanotic. Neck: Supple. Chest: Clear to auscultation. No crepitations. No rhonchi. Cardiovascular: Regular rate and rhythm. There were no murmurs, no rubs, no gallops. GI: Abdomen was soft, nontender. Bowel sounds present. Extremities: The left lower extremity continues to be cold and purplish. The digits: She is not able to move them and sensation is absent. There is still some blister formation on the left lower extremity. 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 LABORATORY DATA: None for today. ASSESSMENT: 1. Acute left ischemic limb status post open thrombectomy of the left anterior and posterior tibial arteries. The patient continues to be remarkably symptomatic. There is a plan for bilateral knee amputation today. 2. Hypertension. We will continue with blood pressure medications. 3. Tobacco and marijuana abuse. Patient has been counseled. 4. Severe atherosclerosis. The patient is on statin and aspirin therapy. 5. Minimally reduced level of anti thrombin enzymes. This is just normal in the face of the acute clot and it will have to be redrawn at a later date when patient is in a more stable physiologic state. PLAN: So, in general, I think Ms. Malagon is fairly stable. She is pending a BKA on the left lower extremity. Once that is done, then we will plan her discharge. cc: Román Haq MD MTDD
--- NOTE | 2018-11-11 15:13 | OPERATIVE NOTE ---
PROCEDURE DATE: 11/11/2018 PREOPERATIVE DIAGNOSIS: Ischemic left leg, status post thrombectomy. POSTOPERATIVE DIAGNOSIS: Ischemic left leg, status post thrombectomy. PROCEDURE: Left cznlv-caz-jjdd amputation. SURGEON: Mitchell Silverman MD. WAREHOUSE PRODUCTION WORKER: None. ANESTHESIA: General endotracheal. INTRAOPERATIVE FINDINGS: As dictated. COMPLICATIONS: None at time of dictation. EBL: 250 mL. SPECIMEN REMOVED: Left leg below the knee. BRIEF HISTORY: A 48-year-old female with ischemic leg. We had done an open thrombectomy with tPA. The leg continued to progress to be ischemic despite her efforts. We therefore decided to do a pryrz-gaa-wwdz amputation. The risks, benefits, and alternatives were discussed. All questions were answered. DESCRIPTION OF PROCEDURE: After informed consent was obtained, patient was brought to the operative theatre, and transferred to the operating table and placed in the supine position. General endotracheal anesthesia was then performed without complication. A formal time-out was then performed confirming patient, date, and procedure. All were in agreement. At that time, attention was given to the leg. We made our incision after prepping and draping the left leg first on the anterior surface 2 fingerbreadths below the tibial tuberosity, carried down through the tibia, isolated the tibia and transected with a Gigli saw. We then carried down through this tissue, making a posterior flap, isolated the fibula, and transected it with the Gigli saw. We isolated the vessels and suture ligated them. We then made our posterior flap, removing some of the gastroc and soleus muscles. We made our posterior flap, closed it in layers using 0 Vicryl and zahra for the skin. She had good closure. The patient tolerated procedure well, and was transferred back to recovery room. cc: Mitchell Silverman MD
--- NOTE | 2018-11-11 16:29 | VASCULAR LAB ---
PROCEDURE NAME: Arterial Limited Lower Ext - 11/10/2018 LIMITED LOWER EXTREMITY ARTERIAL STUDY: REQUESTING PHYSICIAN: Dr. Silverman. PHYSICIAN AIDE: Frankie. INDICATION: Preop evaluation for amputation. FINDINGS: Segmental pressures: Left brachial 139, left distal thigh 82. Waveform analysis: Waveforms appear to be pulsatile at the level of the calf. INTERPRETATION: Likely able to heal a left fpqil-zhp-woyb amputation by waveforms. cc: Mitchell Silverman MD
[2018-11-12] MEDS: NORCO-10 PO PRN ×5 (00:17→23:07)
[2018-11-12] MEDS: DILAUDID IV PRN ×6 (02:34→22:17)
[2018-11-12] MEDS: HEPARIN 25,000 UNITS/D5W 25,000 UNIT/250 ML IV.SOLN IV SCH ×2 (02:45→22:25)
[2018-11-12] MEDS: COZAAR PO SCH (08:17)
[2018-11-12] MEDS: PERIDEX MT SCH ×2 (08:17→22:20)
[2018-11-12] MEDS: TRANDATE PO SCH ×2 (08:17→22:20)
[2018-11-12] MEDS: CRESTOR PO SCH (08:17)
[2018-11-12] MEDS: ASPIRIN PO SCH (08:17)
--- NOTE | 2018-11-12 10:41 | GENERAL SURGERY PROGRESS NOTE ---
DATE: 11/12/2018 SUBJECTIVE: Patient doing okay after left jjfna-bmd-fznq amputation. OBJECTIVE: Vital Signs: Patient is currently afebrile. Her vital signs are stable. General: No acute distress. Cardiovascular: Regular rate and rhythm. Lungs: Grossly clear. Abdomen: Soft, nondistended. Extremities: BKA site with dressing intact. No active bleeding. ASSESSMENT AND PLAN: A 48-year-old female postoperative day #1 from left uuslv-lfr-owcu amputation. Postoperative state at this time, continue current treatment. Continue working with physical therapy. cc: Mitchell Silverman MD
--- NOTE | 2018-11-12 14:23 | PROGRESS NOTE ---
DATE: 11/12/2018 SUBJECTIVE: This morning, Ms. Malagon refers to be feeling a whole lot better. She is laughing more. She seems happier. There was a friend at the bedside at the time of the encounter. OBJECTIVE: Vital signs: Blood pressure 107/62, pulse of 70, respirations 18, temperature 98.1. General: Ms. Malagon is a 48-year-old, female. She is in bed. No distress. HEENT: Mucosa is pink and moist. Anicteric. Acyanotic. Neck: Supple. Chest: Clear to auscultation. Cardiovascular: Regular rate and rhythm. Abdomen: Soft, distended, but nontender. Extremities: The right lower extremity is unremarkable. Left lower extremity has a recent BKA. The stump has a sterile dressing over it. LABORATORY DATA: None for today. ASSESSMENT: 1. Acute left ischemic limb. The patient is currently status post left BKA after an open thrombectomy of the arteries. 2. Hypertension, controlled. 3. Tobacco and marijuana abuse. 4. Severe atherosclerosis. Patient is on medications. In general, I think Ms. Malagon is a whole lot better today. She is happier. She is status post left BKA and will be pending further recommendations from surgery as to when they think the patient will be okay for discharge. She is getting physical therapy now. cc: Román Haq MD
[2018-11-12] MEDS: ZOFRAN IV PRN (23:14)
[2018-11-13] MEDS: DILAUDID IV PRN ×5 (03:23→20:22)
[2018-11-13] MEDS: NORCO-10 PO PRN ×5 (05:29→22:16)
[2018-11-13] MEDS: PERIDEX MT SCH ×2 (08:05→20:25)
[2018-11-13] MEDS: COZAAR PO SCH (08:06)
[2018-11-13] MEDS: CRESTOR PO SCH (08:06)
[2018-11-13] MEDS: TRANDATE PO SCH ×2 (08:06→20:25)
[2018-11-13] MEDS: ASPIRIN PO SCH (08:06)
--- NOTE | 2018-11-13 13:29 | GENERAL SURGERY PROGRESS NOTE ---
DATE: 11/13/2018 SUBJECTIVE: Patient seems to be doing about the same, although she reported some pain in her leg. OBJECTIVE: Vital Signs: Patient is currently afebrile. Her vital signs are stable. General: No acute distress. Cardiovascular: Regular rate and rhythm. Lungs: Grossly clear. Abdomen: Soft, nontender, nondistended. Groin incision healing okay. Extremities: BKA with dressings still intact. ASSESSMENT AND PLAN: A 48 year, female, currently postoperative day #2 from left ahuml-tgp-ugps amputation. Postoperative state at this time, continue current treatment. We will continue working with physical therapy. We would like to take down the dressing tomorrow, which will be postoperative day 3. cc: Mitchell Silverman MD
[2018-11-13] MEDS: HEPARIN 25,000 UNITS/D5W 25,000 UNIT/250 ML IV.SOLN IV SCH (16:12)
--- NOTE | 2018-11-13 19:28 | PROGRESS NOTE ---
DATE: 11/13/2018 SUBJECTIVE: Today Ms. Malagon refers to be feeling okay, not as chirpy as yesterday because she has been hurting. OBJECTIVE: Her blood pressure is 120/64, pulse of 73, respirations 13, temperature 97.4 degrees. The patient is saturating 100% on room air. On general exam, Ms. Malagon is a 48-year-old female. She is in bed. She was not in any distress. Mucosa is pink and moist. Anicteric. Acyanotic. Neck is supple. Chest is clear to auscultation. No crepitations. No rhonchi. Cardiovascular: Regular rate and rhythm. No murmurs, no rubs, no gallops. GI: Abdomen is soft, distended, but nontender. Extremities: Right lower extremity is unremarkable. The left lower extremity has a recent BKA. The stump has a sterile dressing over it. 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 LABORATORY DATA: None for today. ASSESSMENT AND PLAN: 1. Acute left ischemic limb, status post left below-knee amputation. Today is day 2 postoperative. 2. Hypertension, controlled. 3. Tobacco and marijuana abuse. The patient has been counseled. 4. Severe atherosclerosis. The patient is on statin and aspirin therapy. The general plan is that Ms. Malagon is self-paid so she cannot go to rehab. We have a plan to possibly discharge her home. She is going to need some devices including hospital bed and wheelchair. Social workers have been consulted and they are working on that. Hopefully we can get everything set up for discharge tomorrow. cc: Román Haq MD
[2018-11-14] MEDS: DILAUDID IV PRN ×6 (00:34→20:31)
[2018-11-14] MEDS: NORCO-10 PO PRN ×4 (03:00→23:56)
[2018-11-14] MEDS: PERIDEX MT SCH ×2 (08:41→20:31)
[2018-11-14] MEDS: COZAAR PO SCH (08:41)
[2018-11-14] MEDS: TRANDATE PO SCH ×2 (08:41→20:31)
[2018-11-14] MEDS: CRESTOR PO SCH (08:42)
[2018-11-14] MEDS: ASPIRIN PO SCH (08:42)
[2018-11-14] MEDS: ZOFRAN IV PRN (13:49)
--- NOTE | 2018-11-14 20:49 | GENERAL SURGERY PROGRESS NOTE ---
DATE: 11/14/2018 She is afebrile. Heart rate 80, blood pressure 100/71. Her stump was inspected appeared viable. Her groin wounds leaking little fluid but otherwise looks okay. She will certainly need physical therapy to assist with the transfer training. Will consult them. cc: Rich Bermudez MD
--- NOTE | 2018-11-15 00:28 | DISCHARGE SUMMARY ---
ADMISSION DATE: 11/05/2018 DISCHARGE DATE: ADMISSION DIAGNOSES: 1. Vascular occlusion. 2. History of chronic pain to neck. 3. Hypertension. 4. Marijuana use. 5. Tobacco use. DIAGNOSES AT TIME OF DISCHARGE: 1. Acute left ischemic limb, status post below-knee amputation. 2. Hypertension. 3. Tobacco and marijuana abuse. 4. Morbid obesity with BMI of 34.6. 5. Severe atherosclerosis. DISPOSITION: Home. FOLLOW-UP: 1. Dr. Kennedy. 2. Dr. Silverman. CONSULTATION DURING THIS ADMISSION: 1. Surgery was consulted. Patient was seen by Dr. Silverman. 2. Hematology/Oncology was consulted, patient was seen by Dr. Kennedy. INVASIVE PROCEDURES DONE DURING ADMISSION: 1. Open thrombectomy of the left lower extremity posterior tibial artery and left anterior tibial artery were done on 11/05/2018. 2. A left BKA was done on 11/11/2018. IMAGING STUDIES OF SIGNIFICANCE: 1. Ultrasound of the left leg showed likely occluded left side with some degree of bilateral proximal vascular disease. 2. 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 3. Another arterial ultrasound did show likely able to heal left cesdy-xmyq-rbzirtiqay by waveforms. LABS: Pathology of the left BKA shows severe atherosclerosis and gangrenous necrosis with ulceration and acute inflammation. DISCHARGE MEDICATIONS: 1. Losartan 100 mg daily. 2. Crestor 40 mg daily. 3. [place] 10 mg p.o. q.4. 4. Aspirin 81 mg daily. 5. Labetalol 200 mg p.o. b.i.d. PRESENTING COMPLAINT: Left foot pain. HISTORY OF PRESENTING COMPLAINT: Ms Malagon is a 48-year-old female who presented to the emergency department in [place] initially because of pain in the left foot with the digits that becoming blue. She was evaluated. Investigations were done and the decision was made to admit her because of ischemic limb. The patient was transferred from [place] to [facility]. HOSPITAL COURSE: During the hospital course, an initial vascular intervention was done. However, the limb continues to show ischemic changes even after the intervention. She continued to be extremely painful. Another vascular study was done and there was no flow, so a decision was made to do a BKA. This was successfully done by Dr. Silverman. Postoperatively, Ms Malagon now feels a whole lot better, no more pain. She has been advised to follow up with Dr. Silverman. CURRENT VITALS: Blood pressure is 136/72, pulse of 83, respirations 16, temperature is 98.4 degrees, patient is saturating 99% on room air. She is clinically stable for discharge. All the discharge instructions have been discussed with her, she voiced understanding. TIME SPENT: For discharge is 34 minutes. cc: MD Mitchell Hernandez MD
[2018-11-15] MEDS: DILAUDID IV PRN ×4 (01:16→11:02)
[2018-11-15] MEDS: NORCO-10 PO PRN (02:49)
[2018-11-15] MEDS: COZAAR PO SCH (08:42)
[2018-11-15] MEDS: CRESTOR PO SCH (08:42)
[2018-11-15] MEDS: TRANDATE PO SCH (08:42)
[2018-11-15] MEDS: PERIDEX MT SCH (08:43)
[2018-11-15] MEDS: ASPIRIN PO SCH (08:43)
[2018-11-15 10:43] VITALS: BP 148/82
--- NOTE | 2018-11-15 10:58 | PROGRESS NOTE ---
DATE: 11/15/2018 SUBJECTIVE: This morning, Ms. Malagon has been evaluated by Surgery and they are okay with her going home. Arrangements have already been made for outpatient follow up. She is clinically stable. OBJECTIVE: Vitals have been reviewed. Blood pressure is 156/79, pulse 84, respirations 18, temperature is 98.4 degrees. Physical exam is unchanged. The stump on the left BKA has been reviewed and it looks clean. ASSESSMENT: Ms. Malagon is clinically stable for discharge. Please refer to the discharge summary dictated yesterday in her chart. cc: Román Haq MD
== END 2018-11-15 11:42 | disposition home or self-care (01) | DRG 241 ==
LOC: ED 14:53 → 4N 22:34 → SUATTDRO 22:34
PROVIDERS: ATTEND Internal Medicine
CPT/HCPCS: 36140; 36430; 71010; 71045; 75635; 80048; 80053; 80061; 81001; 81240; 81241; 82550; 82948; 83090; 83605; 83735; 84443; 84484; 85025; 85300; 85301; 85302; 85306; 85610; 85612; 85613; 85730; 86147; 86850; 86900; 86901; 86920; 87040; 88307; 93922; 93923; 94760; 94761; 94799; 96365; 96375; 99285; 99291; A9270; C1769; J0330; J0360; J0690; J1100; J1170; J1644; J2250; J2270; J2370; J2405; J2440; J2550; J2997; J3010; J7030; J7040; J7120; P9016; Q9967; XXXXX